=== PATIENT | female | born 1980 | race Caucasian/White ===

== ENCOUNTER 2017-08-26 10:12 | Emergency (ER) | payer OTHER ==
[~2017-08-26] VITALS: Ht 165.1 cm; Wt 89.8 kg
[~2017-08-26 10:12] MED LIST: ATEN50 PO; CHLO25 PO; GABA600 PO; SERT50 PO; ZESTRIL40 MG PO; Zofran Odt8 MG SL
[2017-08-26] MEDS ORDERED: Cheratussin AC118 ML PO (11:27)
[2017-08-26] MEDS ORDERED: Diflucan150 MG PO (11:27)
[2017-08-26] MEDS ORDERED: Veetids 500500 MG PO (11:27)
[2018-06-25] MEDS ORDERED: METPHE10 PO (11:24)
[2018-06-25] MEDS ORDERED: LORA1 PO (11:24)
[2018-06-25] MEDS ORDERED: BUDE6HFA INH (11:24)
[2018-06-25] MEDS ORDERED: Ventolin/Prove6.7 GM (11:24)
[2018-06-25] MEDS ORDERED: LOVA40 PO (11:25)
[2018-06-25] MEDS ORDERED: SERT100 PO (11:25)
[2018-06-25] MEDS ORDERED: Omeprazole20 M1 PO (11:25)
[2018-06-25] MEDS ORDERED: CLON.1 PO (11:25)
[2018-06-25] MEDS ORDERED: Voltaren100 GM TOP (12:08)
[2018-06-25] MEDS ORDERED: IBUP800 PO (12:08)
[2018-06-25] MEDS ORDERED: TRAM50 PO (12:08)
== END 2017-08-26 11:30 | disposition home or self-care (01) ==
LOC: ER 10:12
DX: J02.9 Acute pharyngitis, unspecified (principal); Z88.8 Allergy status to other drugs, medicaments and biological substances; Z79.899 Other long term (current) drug therapy; J45.909 Unspecified asthma, uncomplicated; I10 Essential (primary) hypertension; F17.210 Nicotine dependence, cigarettes, uncomplicated
CPT/HCPCS: 87081; 87430; 99283; 99284

== ENCOUNTER 2017-10-03 14:48 | Emergency (ER) | payer OTHER ==
[~2017-10-03] VITALS: Ht 165.1 cm; Wt 86.2 kg
[~2017-10-03 14:48] MED LIST changes: +Cheratussin AC118 ML PO; +Diflucan150 MG PO; +Veetids 500500 MG PO
[2017-10-03] MEDS ORDERED: Roxicodone5 MG PO (16:02)
[2018-06-25] MEDS ORDERED: BUDE6HFA INH (11:24)
[2018-06-25] MEDS ORDERED: Ventolin/Prove6.7 GM (11:24)
[2018-06-25] MEDS ORDERED: METPHE10 PO (11:24)
[2018-06-25] MEDS ORDERED: LORA1 PO (11:24)
[2018-06-25] MEDS ORDERED: LOVA40 PO (11:25)
[2018-06-25] MEDS ORDERED: SERT100 PO (11:25)
[2018-06-25] MEDS ORDERED: CLON.1 PO (11:25)
[2018-06-25] MEDS ORDERED: Omeprazole20 M1 PO (11:25)
[2018-06-25] MEDS ORDERED: Voltaren100 GM TOP (12:08)
[2018-06-25] MEDS ORDERED: IBUP800 PO (12:08)
[2018-06-25] MEDS ORDERED: TRAM50 PO (12:08)
== END 2017-10-03 16:11 | disposition home or self-care (01) ==
LOC: ER 14:48
DX: M25.562 Pain in left knee (principal); Z88.8 Allergy status to other drugs, medicaments and biological substances; Z79.899 Other long term (current) drug therapy; Z79.2 Long term (current) use of antibiotics; J45.909 Unspecified asthma, uncomplicated; I10 Essential (primary) hypertension; F17.210 Nicotine dependence, cigarettes, uncomplicated
CPT/HCPCS: 73590; 99283

== ENCOUNTER → 2017-10-26 | Outpatient (CLI) | payer OTHER ==
[~2017-10-26] MED LIST changes: +Roxicodone5 MG PO
[2017-10-26 14:10] LABS: Candida species (DNA Probe) Negative (NEGATIVE); G. vaginalis (DNA Probe) Positive (NEGATIVE); T. vaginalis (DNA Probe) Positive (NEGATIVE)
== END ==
LOC: LAB 09:59 → LAB SHORT 09:59
PROVIDERS: Nurse Practitioner Family
DX: N89.8 Other specified noninflammatory disorders of vagina (principal)
CPT/HCPCS: 87480; 87510; 87660

== ENCOUNTER 2017-12-26 11:47 | Emergency (ER) | payer OTHER ==
[~2017-12-26] VITALS: Ht 165.1 cm; Wt 86.2 kg
[2017-12-26] MEDS ORDERED: Roxicodone5 MG PO (12:47)
== END 2017-12-26 14:10 | disposition home or self-care (01) ==
LOC: ER 11:47
DX: M54.9 Dorsalgia, unspecified (principal); I10 Essential (primary) hypertension; J45.909 Unspecified asthma, uncomplicated
CPT/HCPCS: 81000; 81025; 99282

== ENCOUNTER 2018-01-07 14:20 | Emergency (ER) | payer OTHER ==
[~2018-01-07] VITALS: Ht 165.1 cm; Wt 86.2 kg
[2018-01-07] MEDS ORDERED: Cheratussin AC118 ML PO (16:12)
[2018-01-07] MEDS ORDERED: PRED20 PO (16:12)
== END 2018-01-07 16:25 | disposition home or self-care (01) ==
LOC: ER 14:20
DX: R05 Cough (principal); I10 Essential (primary) hypertension; F17.210 Nicotine dependence, cigarettes, uncomplicated
CPT/HCPCS: 71046; 99283

== ENCOUNTER 2018-03-03 15:24 | Emergency (ER) | payer OTHER ==
[~2018-03-03] VITALS: Ht 165.1 cm; Wt 90.7 kg
[~2018-03-03 15:24] MED LIST changes: +PRED20 PO
[2018-03-03] MEDS ORDERED: Roxicodone5 MG PO (16:48)
== END 2018-03-03 17:00 | disposition home or self-care (01) ==
LOC: ER 15:24
DX: L02.411 Cutaneous abscess of right axilla (principal); Z88.8 Allergy status to other drugs, medicaments and biological substances; Z79.899 Other long term (current) drug therapy; J45.909 Unspecified asthma, uncomplicated; I10 Essential (primary) hypertension; F17.210 Nicotine dependence, cigarettes, uncomplicated
CPT/HCPCS: 10060; 99283-25

== ENCOUNTER 2018-07-28 14:35 | Emergency (ER) | payer OTHER ==
[~2018-07-28] VITALS: Ht 165.1 cm; Wt 86.2 kg
[~2018-07-28 14:35] MED LIST changes: +BUDE6HFA INH; +CLON.1 PO; +IBUP800 PO; +LORA1 PO; +LOVA40 PO; +METPHE10 PO; +Omeprazole20 M1 PO; +SERT100 PO; +TRAM50 PO; +Ventolin/Prove6.7 GM; +Voltaren100 GM TOP
[2018-07-28] MEDS ORDERED: TRAM50 PO (15:28)
== END 2018-07-28 15:36 | disposition home or self-care (01) ==
LOC: ER 14:35
DX: S93.601A Unspecified sprain of right foot, initial encounter (principal); W10.9XXA Fall (on) (from) unspecified stairs and steps, initial encounter; Z88.8 Allergy status to other drugs, medicaments and biological substances; Z79.899 Other long term (current) drug therapy; J45.909 Unspecified asthma, uncomplicated; I10 Essential (primary) hypertension; F17.210 Nicotine dependence, cigarettes, uncomplicated
CPT/HCPCS: 73630; 99283-25